=== PATIENT | female | born 1995 | race African-American/Black ===

== ENCOUNTER 2020-06-27 19:16 | Inpatient (IN) ==
[2020-06-27] MEDS ORDERED: ACETAMINOPHEN 500 MG TABLET ONE (19:54)
[2020-06-27] MEDS ORDERED: SODIUM CHLORIDE 0.9% 1,000 ML IV STA (19:59)
[2020-06-27] MEDS ORDERED: ACETAMINOPHEN 500 MG TABLET PO STA (19:59)
[2020-06-27] MEDS ORDERED: HYDROmorphone 2 MG/1 ML VIAL IV STA (20:10)
[2020-06-27] MEDS ORDERED: ONDANSETRON 4 MG/2 ML VIAL IV STA (20:10)
[2020-06-27] MEDS ORDERED: KETOROLAC 30 MG/1 ML VIAL IV STA (20:10)
[2020-06-27 20:27] LABS: Basophils % 0.2 % (0.0-0.8); Hematocrit 33.6 VOL% (35.7-47.0); Hemoglobin 10.4 GM/DL (12.0-16.0); Immature Granulocytes % 0.4 %; Immature Granulocytes Absolute 0.04 #; Lymphocytes # 0.9 10*3/uL (1.4-4.0); Lymphocytes % 8.7 % (21.3-54.2); Mean Corpuscular Volume 84.6 FL (87-102); Mean Platelet Volume 9.5 FL (9.6-12.0); Monocytes % 13.5 % (1.7-12.7); Neutrophils % 77.2 % (38.7-73.9); Platelet Count 239 T/CUMM (130-400); Red Blood Count 3.97 MC/CUMM (3.8-5.5); Red Cell Distribution Width 13.9 % (9.3-17.3); White Blood Count 10.2 T/CUMM (4-12)
[2020-06-27 20:32] LABS: Bacteria,Urine Many /HPF (Few); Bilirubin,Urine Negative (Negative); Blood, Urine Small mg/dL (Negative); Glucose,Urine (UA) Negative (Negative); Ketones,Urine Negative (Negative); Mucus,Urine Few /LPF (Occasional); Nitrite,Urine Positive (Negative); Protein,Urine 100 MG/DL; RBC,Urine 3 /HPF (0-4); Squamous Epithelial Cell,Urine Occasional /HPF (0-10); Urine Appearance Hazy (Clear); Urine Color Yellow (Yellow); WBC,Urine 29 /HPF (0-6)
[2020-06-27 20:42] LABS: Albumin 3.4 G/DL (3.4-5.0); Bilirubin,Total 0.5 MG/DL (0.2-1.0); Osmolality,Calculated 268.2 MOS/KG (273-304); Total Protein 8.2 G/DL (6.4-8.3)
[2020-06-27] MEDS ORDERED: MEROPENEM 500 MG in SODIUM CHLORIDE 0.9% 100 ML IV ONE (20:46)
[2020-06-27] MEDS ORDERED: DOCUSATE SODIUM 100 MG CAPSULE PO PRN (22:55)
[2020-06-27] MEDS ORDERED: ONDANSETRON 4 MG/2 ML VIAL IV PRN (22:55)
[2020-06-27] MEDS ORDERED: HYDROmorphone 2 MG/1 ML VIAL IV PRN (23:19)
[2020-06-28] MEDS: LEVOFLOXACIN INJ 500 MG in PREMIX 1 EACH IV SCH ×2 (00:35→22:24)
[2020-06-28] MEDS: POTASSIUM CHLORIDE 20 MEQ TABLET PO PRN ×3 (00:36→04:38)
[2020-06-28] MEDS: ENOXAPARIN 40 MG/0.4 ML SYRINGE SUBCUT SCH ×2 (00:36→22:25)
[2020-06-28] MEDS: SODIUM CHLORIDE 0.9% 1,000 ML IV SCH ×2 (00:36→20:32)
[2020-06-28] MEDS ORDERED: INFLUENZA VIRUS VACCINE 0.5 ML SYRINGE IM ONE (00:56)
[2020-06-28 06:06] LABS: Basophils % 0.1 % (0.0-0.8); Eosinophils % 0.1 % (0.00-10.9); Hematocrit 33.1 VOL% (35.7-47.0); Hemoglobin 10.1 GM/DL (12.0-16.0); Immature Granulocytes % 0.6 %; Immature Granulocytes Absolute 0.04 #; Lymphocytes # 1.2 10*3/uL (1.4-4.0); Mean Corpuscular HGB Conc 30.5 GM/DL (32-36); Mean Corpuscular Volume 86.9 FL (87-102); Mean Platelet Volume 9.6 FL (9.6-12.0); Monocytes % 16.2 % (1.7-12.7); Platelet Count 203 T/CUMM (130-400); Red Blood Count 3.81 MC/CUMM (3.8-5.5); Red Cell Distribution Width 14.3 % (9.3-17.3); White Blood Count 6.9 T/CUMM (4-12)
[2020-06-28 06:20] LABS: Calcium 8.2 MG/DL (8.5-10.1); Osmolality,Calculated 271.8 MOS/KG (273-304)
[2020-06-28 06:24] LABS: % Iron Saturation 3.5 % (18-50); Ferritin 46.3 ng/ml (8-252)
[2020-06-28 06:31] LABS: Band Neutrophils 1 % (0-10); Hypochromasia 1+; Lymphocytes 23 % (20-55); Microcytosis 1+; Ovalocytes Slight; Platelet Estimate Adequate; Segmented Neutrophils 65 % (50-85); Total Cells Counted 100
[2020-06-28 07:04] LABS: Sedimentation Rate-Westergren 55 MM/HR (0-20)
[2020-06-28] MEDS ORDERED: FERRIC GLUCONATE COMPLEX 125 MG in SODIUM CHLORIDE 0.9% 100 ML IV ONE (09:30)
[2020-06-28 09:31] LABS: Folate 10.3 NG/ML (5.4-24.0); Vitamin B12 311 PG/ML (211-911)
[2020-06-28] MEDS: DOCUSATE SODIUM 100 MG CAPSULE PO SCH ×2 (09:35→20:32)
[2020-06-28] MEDS: ACETAMINOPHEN 325 MG TABLET PO PRN ×2 (10:45→17:05)
[2020-06-29 06:04] LABS: Basophils % 0.2 % (0.0-0.8); Eosinophils # 0.1 10*3/uL (0.0-0.87); Hematocrit 30.4 VOL% (35.7-47.0); Hemoglobin 9.2 GM/DL (12.0-16.0); Immature Granulocytes % 0.3 %; Immature Granulocytes Absolute 0.02 #; Lymphocytes # 1.5 10*3/uL (1.4-4.0); Lymphocytes % 23.5 % (21.3-54.2); Mean Corpuscular HGB Conc 30.3 GM/DL (32-36); Mean Corpuscular Volume 85.4 FL (87-102); Mean Platelet Volume 9.7 FL (9.6-12.0); Monocytes % 18.6 % (1.7-12.7); Neutrophils % 56.4 % (38.7-73.9); Platelet Count 211 T/CUMM (130-400); Red Blood Count 3.56 MC/CUMM (3.8-5.5); White Blood Count 6.3 T/CUMM (4-12)
[2020-06-29 06:20] LABS: Calcium 8.6 MG/DL (8.5-10.1); Osmolality,Calculated 269.8 MOS/KG (273-304)
[2020-06-29 06:30] LABS: Lymphocytes 27 % (20-55); Platelet Estimate Adequate; Segmented Neutrophils 62 % (50-85); Total Cells Counted 100
[2020-06-29 06:31] LABS: Hypochromasia 1+; Microcytosis Slight; Ovalocytes Slight
[2020-06-29] MEDS: SODIUM CHLORIDE 0.9% 1,000 ML IV SCH ×2 (08:16→09:27)
[2020-06-29] MEDS: DOCUSATE SODIUM 100 MG CAPSULE PO SCH (09:28)
[2020-06-29] MEDS ORDERED: FERRIC GLUCONATE COMPLEX 125 MG in SODIUM CHLORIDE 0.9% 100 ML IV ONE (09:30)
[2020-06-29 12:00] VITALS: BP 117/70
[2020-06-30 08:20] LABS: Hemoglobin A1 (Alkaline) 97.2 % (96.5-98.5); Hemoglobin A2 (Alkaline) 2.8 % (1.5-3.5)
== END 2020-06-29 13:35 | disposition home or self-care (01) | DRG 463 ==
LOC: N.EDINP 19:16 → N.ED 19:16 → N.3E 06-28 00:12
PROVIDERS: ADMIT Internal Medicine; ATTEND Internal Medicine